=== PATIENT | female | born 1975 | race Caucasian/White ===

== ENCOUNTER 2024-04-05 04:55 | Emergency (ER) | payer MEDICAID, SELFPAY ==
[2024-04-05 04:55] VITALS: BMI 32.8
[2024-04-05 05:05] VITALS: BP 132/75; PULSE 93; RESP 19; TEMP 36.9; O2SAT 97
--- NOTE | 2024-04-05 05:06 | PD.EDRME ---
Rapid Medical Screening Exam RME Arrival date/time: 04/05/24 04:55 48 year old female present to ED for c/o of shortness of breath/cp. I have greeted and performed a focused initial assessment of this patient. A comprehensive ED assessment and evaluation of the patient, analysis of all test results, and completion of the medical decision making process will be conducted by additional ED providers. Chief Complaint: Shortness of Breath/Dyspnea Time Seen by Provider: 04/05/24 04:58 Vital signs: Vital Signs Temperature 98.4 F 04/05/24 05:05 Pulse Rate 93 04/05/24 05:05 Respiratory Rate 19 04/05/24 05:05 Blood Pressure 132/75 H 04/05/24 05:05 Pulse Oximetry (%) 97 04/05/24 05:05 Oxygen Delivery Method Room Air 04/05/24 05:05
--- NOTE | 2024-04-05 05:07 | EKG_ITS ---
[facility] Test Date: 2024-04-05 Pat Name: LAURA JAIME Department: Room: - Gender: Female [employer]: : 1975 Requested By: Theo Cardona Order Number: [id number] Reading MD: Theo Cardona Measurements Intervals [place] Rate: 97 P: 66 IA: 143 QRS: 57 QRSD: 81 T: 53 QT: 340 QTc: 432 Interpretive Statements SINUS RHYTHM NONSPECIFIC T-WAVE ABNORMALITY No previous ECG available for comparison /store/[email or web address]/[id number]
--- NOTE | 2024-04-05 05:07 | XR_ITS ---
Examination: PA lateral chest 2 views Technique: Upright PA lateral chest 2 views Exam date and time: April 05, 2024 at 0510 hrs. Indications: Coughing beginning 4 days ago. Findings: Normal heart size Lungs are clear. The osseous structures are intact Impression: No active disease
[2024-04-05 05:44] LABS: Basophils # (Auto) 0.1 Thou/mm3 (0.0-0.2); Basophils % (Auto) 1 % (0-2.5); Eosinophils # (Auto) 0.5 Thou/mm3 (0.0-0.5); Eosinophils % (Auto) 6 % (0-10); Hematocrit 42.2 % (36.0-46.0); Immature Granulocytes % (Auto) 1 % (0-0); Immature Granulocytes Auto 0.09 Thou/mm3 (0.00-0.00); Lymphocytes # (Auto) 2.2 Thou/mm3 (1.0-4.8); Lymphocytes % (Auto) 27 % (10-50); Mean Corpuscular HGB Conc 33.2 g/dl (31.0-37.0); Mean Corpuscular Hemoglobin 29.2 pg (25.0-35.0); Mean Corpuscular Volume 88 fL (80-100); Monocytes # (Auto) 0.9 Thou/mm3 (0.0-0.8); Monocytes % (Auto) 11 % (0-12); Neutrophils # (Auto) 4.5 Thou/mm3 (1.8-7.7); Neutrophils % (Auto) 54 % (37-80); Nucleated Red Blood Cell % 0 /100 WBC (0); Platelet Count 239 Thou/mm3 (140-440); RDW Standard Deviation 43.6 fL (36.4-46.3); White Blood Count 8.3 Thou/mm3 (3.6-11.0)
--- NOTE | 2024-04-05 06:05 | PC.NURSE ---
PT RECEIVED FROM ER LOBBY, PT CAME TO ER FOR C/O SOB, PT GOT TO ROOM 7 COUGHING, O2 SATS 100% RA, INFORMED PT THAT DOCTOR WILL COME IN TO SEE HER SHORTLY.
[2024-04-05 06:08] LABS: B-Type Natriuretic Peptide < 20 pg/mL (0-100)
[2024-04-05 06:10] LABS: Alanine Aminotransferase 20 U/L (10-49); Albumin, Serum 4.4 gm/dL (3.5-5.0); Albumin/Globulin Ratio 1.8 (1.2-2.2); Alkaline Phosphatase 67 U/L (46-116); Anion Gap 8 (7-16); Aspartate Amino Transferase 15 U/L (0-34); BUN/Creatinine Ratio 11 Ratio (12-20); Bilirubin,Total 0.5 mg/dL (0.3-1.2); Blood Urea Nitrogen 9 mg/dL (9-23); Calcium 9.9 mg/dL (8.3-10.6); Calcium (Corrected) 9.9 mg/dL (8.5-10.1); Carbon Dioxide 24.9 mMol/L (20.0-31.0); Chloride 106 mMol/L (98-107); Creatinine (Component) 0.8 mg/dL (0.6-1.3); Estimated Creatinine Clearance 99.7 mL/min (>60); Globulin 2.4 gm/dL (2.3-3.5); Glucose 121 mg/dL (74-106); Osmolality,Calculated 277 (275-295); Sodium 139 mMol/L (136-145); Total Protein 6.8 gm/dL (5.7-8.2); Troponin I < 0.002 ng/mL (0.0-0.045); eGFR > 60 See Note
[2024-04-05 06:16] VITALS: BP 140/81; PULSE 83; RESP 18; TEMP 36.7; O2SAT 99
[2024-04-05] MEDS: ACETAMINOPHEN 325 MG TABLET 650 MG PO (07:39)
--- NOTE | 2024-04-05 08:17 | PC.NURSE ---
called RT @0750 for breathing treatment, states they will come administered. Called pharmacy at 0815 for prednisone, will bring it to ED.
[2024-04-05 08:31] VITALS: BP 114/74; PULSE 65; RESP 16; TEMP 36.8; O2SAT 96
--- NOTE | 2024-04-05 09:26 | PC.NURSE ---
Pt reports that she is tired of waiting for the breathing treatment and the med to be delivered by pharmacy and would like to go home, provider made aware.
--- NOTE | 2024-04-18 02:55 | EDNOTE_ITS ---
ED General RME/HPI General Chief complaint: Shortness of Breath/Dyspnea Stated complaint: SOB, COUGHING Time Seen by Provider: 04/05/24 04:58 Arrival date/time: 04/05/24 04:55 RME / HPI RME / HPI narrative: [place] HPI: 48-year-old female with no significant medical history who presents to the emergency department with persistent cough despite being on oral antibiotics with her primary care physician. Cough is otherwise nonproductive without associated fevers chills or sweats. She has mild chest pain with coughing, and no chest pain at rest. She denies sick contacts. She does not smoke cigarettes. Related Data Previous Rx's ?Medication ?Instructions ?Recorded ibuprofen 800 mg tablet 800 mg PO TID PRN pain #30 tabs 07/21/21 prednisone 20 mg tablet See Taper PO QDAY #10 tabs 07/21/21 dicyclomine 20 mg tablet 20 mg PO TID PRN pain #30 tabs 05/23/22 fluconazole 150 mg tablet 150 mg PO .x1 #1 tab 05/23/22 (Diflucan) ondansetron 4 mg disintegrating 4 mg PO Q6H PRN nausea and 05/23/22 tablet vomiting #14 tabs amoxicillin 875 mg-potassium 1 tab PO BID #14 tabs 08/06/22 clavulanate 125 mg tablet ibuprofen 800 mg tablet 800 mg PO TID PRN pain #30 tabs 08/06/22 cyclobenzaprine 5 mg tablet 5 mg PO TID PRN muscle spasm #30 02/09/23 tabs prednisone 50 mg tablet 50 mg PO QDAY #4 tabs 04/05/24 Allergies Allergy/AdvReac Type Severity Reaction Status Date / Time codeine AdvReac Severe VOMIT, Verified 02/09/23 18:39 JITTERY morphine AdvReac Severe APPREHENSIV Verified 02/09/23 18:39 E Review of Systems Review of Systems Systems Reviewed: All systems reviewed, normal except as documented ED Exam Narrative Physical exam: GENERAL APPEARANCE: AxOx4, generally well-appearing, no acute distress. HEENT: NC, AT. MMM. EOMI, clear conjunctiva, oropharynx clear. NECK: Supple without lymphadenopathy. No stiffness or restricted ROM. HEART: Normal rate and regular rhythm, normal S1/S1, no m/r/g LUNGS: moving air well. Coarse rhonchi and wheezes on the end expiratory phase in all lung macias, no crackles ABDOMEN: Soft, nontender, nondistended with good bowel sounds heard. BACK: No midline C/T/L spine pain or deformity, No CVAT, no obvious deformity. EXTREMITIES: Without cyanosis, clubbing or edema. MUSCULOSKELETAL: FROM of all major joints, no chest tenderness NEUROLOGICAL: Grossly nonfocal. Alert and oriented, moving all 4 extremities. CN not formally tested but appear grossly intact. Observed to ambulate with normal gait. Skin: Warm and dry without any rash. Course Course Course Narrative: Patient notes mild to moderate improvement after nebulizer treatment, repeat exam shows persistent and expiratory rhonchi and faint wheezes, no respiratory distress. Patient is electing and requesting for discharge. Quality Measures none Orders Category Date Time Status Bedside COVID-19 Antigen Test NOW Care 04/05/24 05:07 Completed Bedside Influenza A&B Antigen Test NOW Care 04/05/24 05:07 Completed EKG (ED ONLY) *Do not use* NOW Care 04/05/24 05:07 Completed EKG (ED Only) Stat Exams 04/05/24 05:07 Draft XR chest 2V Stat Exams 04/05/24 05:07 Completed BNP [B-Type Natriuretic Peptide] Stat Lab 04/05/24 05:28 Completed CBC Stat Lab 04/05/24 05:28 Completed CMP [Comprehensive Metabolic Panel] Stat Lab 04/05/24 05:28 Completed Troponin I Stat Lab 04/05/24 05:28 Completed ALBUTEROL RT 3ml [Proventil Rt 3ml] Med 04/05/24 07:47 Discontinued 2.5 mg INH X1 ONE Acetaminophen Tab [Tylenol Tab] Med 04/05/24 07:32 Discontinued 650 mg PO X1 ONE predniSONE Med 04/05/24 07:47 Discontinued 60 mg PO X1 ONE Vital Signs Vital signs: Vital Signs Temperature 98.4 F 04/05/24 05:05 Pulse Rate 93 04/05/24 05:05 Respiratory Rate 19 04/05/24 05:05 Blood Pressure 132/75 H 04/05/24 05:05 Pulse Oximetry (%) 97 04/05/24 05:05 Oxygen Delivery Method Room Air 04/05/24 05:05 Procedures -ED EKG Interpretation #1: Date of EK04/05/24 Time of EK:26 Rate: 97 Interpretation: Interpreted by me EKG Impression: Normal sinus rhythm, No acute ST-T changes, Normal intervals and Normal axis MDM Patient data External records reviewed:: [facility] previous records Clinical information provided by:: patient Social determinants that could affect healthcare access:: none Patient has the following chronic illnesses:: None How is presenting disease/condition affected by chronic disease/condition?: no chronic disease Evaluation data The following diagnostics were reviewed and interpreted by me:: lab results Lab and/or radiology exams considered but not ordered:: None Interpretation Summary: None Medications Medications considered but not ordered:: None Medication administrations:: Medication Administration History Discontinued Medications Acetaminophen (Acetaminophen 325 Mg Tablet) 650 mg PO X1 ONE Stop: 04/05/24 07:33 Last Admin: 04/05/24 07:39 Dose: 650 mg Documented By: SHANIKA Albuterol (Albuterol Rt 2.5 Mg/3 Ml Nebu) 2.5 mg INH X1 ONE Stop: 04/05/24 07:48 Prednisone (Prednisone 20 Mg Tablet) 60 mg PO X1 ONE Stop: 04/05/24 07:48 Above Consultations Consultation(s) initiated? (list below): No Diagnosis Differential Diagnosis ED Complaint MDM: COPD exacerbation, asthma exacerbation, acute bronchitis Most likely diagnosis given after review of the tests above:: See below Admission Indicated Admission indicated?: not indicated Explain why admission is indicated or not indicated:: As per narrative Admission Request Was there a request for admission?: No Disposition Plan Disposition Plan: Discharge Discharge Attestation Discharge Attestation: The patient and all family members were given an opportunity to ask questions and understood the discharge instructions. Discharge instructions specifically effects, indications for sooner follow up or return to the emergency department, and the expected course of current diagnosis. Patient condition: Stable Medical Decision Making MDM Narrative MDM Narrative: Ms. Moreira is otherwise well-appearing, without significant respiratory distress, who presents with a cough and exam significant for coarse rhonchorous wheezing. She improved with a short course of nebulized bronchodilators here in the emergency department. I suspect more component of a viral bronchitis with reactive airway, however she was already started on antibiotics by her primary care doctor and will have complete. She has mild pleuritic chest pain with coughing, she has no significant risk factors, and EKG and troponin shows no acute findings. Heart score of 1 she is appropriate for outpatient follow-up. Chest x-ray was ordered via the RME process where on my interpretation there is no acute cardiopulmonary findings, no cardiomegaly, and no bony abnormalities. I reviewed the radiology interpretation and agree. Patient is otherwise well- appearing, no respiratory distress, stable vital signs, she is appropriate for outpatient treatment follow-up Differential Diagnosis Differential Diagnosis: COPD exacerbation, asthma exacerbation, acute bronchitis Lab Data 04/05/24 05:28 04/05/24 05:28 Labs: Lab Results 04/05/24 Range/Units 05:28 WBC 8.3 (3.6-11.0) Thou/mm3 RBC 4.80 (4.00-5.20) Miln/mm3 Hgb 14.0 (12.0-16.0) g/dL Hct 42.2 (36.0-46.0) % MCV 88 (80-100) fL MCH 29.2 (25.0-35.0) pg MCHC 33.2 (31.0-37.0) g/dl RDW Std Deviation 43.6 (36.4-46.3) fL Plt Count 239 (140-440) Thou/mm3 Neut % (Auto) 54 (37-80) % Lymph % (Auto) 27 (10-50) % Roosevelt % (Auto) 11 (0-12) % Eos % (Auto) 6 (0-10) % Baso % (Auto) 1 (0-2.5) % Neut # (Auto) 4.5 (1.8-7.7) Thou/mm3 Lymph # (Auto) 2.2 (1.0-4.8) Thou/mm3 Roosevelt # (Auto) 0.9 H (0.0-0.8) Thou/mm3 Eos # (Auto) 0.5 (0.0-0.5) Thou/mm3 Baso # (Auto) 0.1 (0.0-0.2) Thou/mm3 Immature Gran # (Auto) 0.09 H (0.00-0.00) Thou/mm3 Absolute Nucleated RBC 0.00 (0.00-0.00) Thou/mm3 Immature Gran % 1 H (0-0) % Nucleated RBC % 0 (0) /100 WBC Sodium 139 (136-145) mMol/L Potassium 4.0 (3.4-5.1) mMol/L Chloride 106 (98-107) mMol/L Carbon Dioxide 24.9 (20.0-31.0) mMol/L Anion Gap 8 (7-16) BUN 9 (9-23) mg/dL Creatinine 0.8 (0.6-1.3) mg/dL Estim Creat Clear Calc 99.7 (>60) mL/min eGFR > 60 (60 - ) See Note BUN/Creatinine Ratio 11 L (12-20) Ratio Glucose 121 H (74-106) mg/dL Calculated Osmolality 277 (275-295) Calcium 9.9 (8.3-10.6) mg/dL Corrected Calcium 9.9 (8.5-10.1) mg/dL Total Bilirubin 0.5 (0.3-1.2) mg/dL AST 15 (0-34) U/L ALT 20 (10-49) U/L Alkaline Phosphatase 67 (46-116) U/L Troponin I < 0.002 (0.0-0.045) ng/mL B-Natriuretic Peptide < 20 (0-100) pg/mL Total Protein 6.8 (5.7-8.2) gm/dL Albumin 4.4 (3.5-5.0) gm/dL Globulin 2.4 (2.3-3.5) gm/dL Albumin/Globulin Ratio 1.8 (1.2-2.2) Discharge Plan Plan Patient Disposition: HOME (Self Care) Prescriptions/Referrals Prescriptions/Med Rec: New prednisone 50 mg tablet 50 mg PO QDAY Qty: 4 0RF No Action prednisone 20 mg tablet See Taper PO QDAY Qty: 10 0RF Taper: Prednisone Taper 20 mg DAILY for 2 Days and 0 Hour 10 mg DAILY for 2 Days and 0 Hour 5 mg DAILY for 7 Days and 0 Hour ibuprofen 800 mg tablet 800 mg PO TID PRN (Reason: pain) Qty: 30 0RF fluconazole [Diflucan] 150 mg tablet 150 mg PO .x1 Qty: 1 0RF dicyclomine 20 mg tablet 20 mg PO TID PRN (Reason: pain) Qty: 30 0RF ondansetron 4 mg tablet,disintegrating 4 mg PO Q6H PRN (Reason: nausea and vomiting) Qty: 14 0RF amoxicillin-pot clavulanate 875-125 mg tablet 1 tab PO BID Qty: 14 0RF ibuprofen 800 mg tablet 800 mg PO TID PRN (Reason: pain) Qty: 30 0RF cyclobenzaprine 5 mg tablet 5 mg PO TID PRN (Reason: muscle spasm) Qty: 30 0RF Referrals: Vadim Starr MD [Primary Care Provider] - In 1 week Problem List Clinical Impression: Bronchitis, RAD (reactive airway disease) with wheezing Patient/Caregiver Discharge Instructions Education Materials: ED Bronchitis with Wheezing (Adult) Additional Instructions: Continue all antibiotics and medicines prescribed by your primary care doctor. You have been added steroids to your treatment regimen to help with the inflammation in your lungs. Follow-up with your primary care doctor in 3 to 5 days for recheck. You can return to the emergency department sooner if symptoms worsen or if you notice any new, concerning issues. Print Language: Danish Stand Alone Forms: Sarah Beth Award Info., Work/School Release, Patient Portal Info Letter
== END 2024-04-05 09:45 | disposition home or self-care (01) ==
PROVIDERS: Physician Assistant; Emergency Provider Emergency Medicine; PCP Family Medicine
DX: J45.909 Unspecified asthma, uncomplicated (principal)
CPT/HCPCS: 36415; 71046; 80053; 83880; 84484; 85025; 87400; 87811; 93005; 99283; A9270